=== PATIENT | male | born 1950 | race Caucasian/White ===

== ENCOUNTER 2016-08-27 07:30 | Inpatient (IN) | payer MEDICARE ==
[~2016-08-27] VITALS: Ht 188 cm; Wt 104.5 kg
[2016-09-05] MEDS ORDERED: ALBU6.7H INH (13:45)
[2016-09-05] MEDS ORDERED: MORP30TA81 PO (13:45)
[2016-09-05] MEDS ORDERED: TAMS-11 PO (13:45)
[2016-09-05] MEDS ORDERED: OXYC10TA32 PO (13:45)
[2016-09-05] MEDS ORDERED: METF850T2 PO (13:45)
[2016-09-10] MEDS ORDERED: LACTATED RINGERS 1,000 ML IV SCH (06:09)
[2016-09-10] MEDS ORDERED: BUPIVACAINE/PF 0.5% ONE (06:51)
[2016-09-10] MEDS ORDERED: THROMBIN 5,000 UNIT VIAL TP ONE (06:52)
[2016-09-10] MEDS ORDERED: BACITRACIN 50,000 UNIT ONE (06:52)
[2016-09-10] MEDS ORDERED: EPINEPHRINE 1 MG/ML, 1ML ONE (06:52)
[2016-09-10] MEDS ORDERED: KETAMINE 10 MG/ML, 20ML ONE (07:18)
[2016-09-10] MEDS ORDERED: HYDROmorphone 1 MG/ML, 1ML ONE ×2 (07:19→09:57)
[2016-09-10] MEDS ORDERED: MIDAZOLAM 1 MG/ML, 2ML ONE (07:19)
[2016-09-10] MEDS ORDERED: FENTANYL PF 250 MCG/5ML ONE ×2 (07:19→09:57)
[2016-09-10] MEDS ORDERED: TRANEXAMIC ACID 100 MG/ML, 10ML ONE ×2 (08:16)
[2016-09-10] MEDS ORDERED: HYDROmorphone 1 MG/ML, 1ML IV PRN (09:00)
[2016-09-10] MEDS ORDERED: PROMETHAZINE 25 MG/ML, 1ML IV PRN (09:00)
[2016-09-10] MEDS ORDERED: ALBUTEROL/IPRATROPIUM 2.5MG/0.5MG, 3 ML NPPB PRN (09:00)
[2016-09-10] MEDS ORDERED: MEPERIDINE/PF 25MG/0.5ML IVPush PRN (09:00)
[2016-09-10] MEDS ORDERED: ACETAMINOPHEN 325 MG TABLET PO PRN (09:00)
[2016-09-10] MEDS ORDERED: ONDANSETRON 2MG/ML, 2ML IVPush PRN ×2 (09:00→12:30)
[2016-09-10] MEDS ORDERED: OXYcodone 5 MG/5 ML ORAL.SOL UDC PO PRN (09:00)
[2016-09-10] MEDS ORDERED: LABETALOL 5MG/ML, 20ML IV PRN (09:00)
[2016-09-10] MEDS ORDERED: MIDAZOLAM 1 MG/ML, 2ML IV PRN (09:00)
[2016-09-10] MEDS ORDERED: hydrALAzine 20 MG/ML, 1ML IV PRN (09:00)
[2016-09-10] MEDS ORDERED: VANCOMYCIN 1,000 MG ONE (10:41)
[2016-09-10] MEDS ORDERED: BUPIVACAINE LIPOSOME/PF INFIL ONE (11:30)
[2016-09-10] MEDS ORDERED: MAGNESIUM HYDROXIDE 8%, 30ML UDC PO PRN (12:30)
[2016-09-10] MEDS ORDERED: PROMETHAZINE 25 MG/ML, 1ML IM PRN (12:30)
[2016-09-10] MEDS ORDERED: BISACODYL 10 MG SUPP PR PRN (12:30)
[2016-09-10] MEDS ORDERED: HYDROmorphone 1 MG/ML, 1ML IVPush PRN (12:30)
[2016-09-10] MEDS ORDERED: DIAZEPAM 5 MG TABLET PO PRN (12:30)
[2016-09-10] MEDS ORDERED: ZOLPIDEM 5MG TABLET PO PRN (12:30)
[2016-09-10] MEDS ORDERED: PHARMACY MAY ADJ FOR RENAL FX MC PRN (12:30)
[2016-09-10] MEDS ORDERED: SENNA/DOCUSATE TABLET PO PRN (12:30)
[2016-09-10] MEDS ORDERED: ACETAMINOPHEN 650 MG SUPP PR PRN (12:30)
[2016-09-10] MEDS ORDERED: DIPHENHYDRAMINE 50 MG CAPSULE PO PRN (12:30)
[2016-09-10] MEDS ORDERED: FENTANYL PF 100 MCG/2ML ONE (15:43)
[2016-09-10] MEDS ORDERED: ACETAMINOPHEN 650 MG/20.3 ML UDC ONE (15:43)
[2016-09-10] MEDS ORDERED: OXYcodone 5 MG/5 ML ORAL.SOL UDC ONE (15:44)
[2016-09-10] MEDS: FENTANYL PF 100 MCG/2ML IV PRN ×2 (15:47→15:56)
[2016-09-10] MEDS ORDERED: PROPOFOL 10 MG/ML, 50ML ONE (16:06)
[2016-09-10] MEDS ORDERED: PROPOFOL 10 MG/ML, 20ML ONE (16:06)
[2016-09-10] MEDS ORDERED: CEFAZOLIN 1,000 MG ONE (16:06)
[2016-09-10] MEDS ORDERED: LABETALOL 5MG/ML 40ML VIAL ONE (16:06)
[2016-09-10] MEDS ORDERED: SUCCINYLCHOLINE 20 MG/ML, 10ML ONE (16:06)
[2016-09-10] MEDS ORDERED: DEXAMETHASONE 4 MG/ML, 1ML ONE (16:06)
[2016-09-10] MEDS ORDERED: ONDANSETRON 2MG/ML, 2ML ONE (16:08)
[2016-09-10] MEDS: D5%-0.9% NACL+KCL 20MEQ 1,000 ML IV SCH (17:30)
[2016-09-10 19:59] VITALS: BP 136/72
[2016-09-10] MEDS: OXYcodone/APAP 5/325MG TABLET PO PRN (20:07)
[2016-09-10] MEDS: CEFAZOLIN PMX 1GM/50ML 50 ML IVPB SCH (20:07)
[2016-09-10] MEDS ORDERED: metFORMIN 850 MG TABLET PO SCH (21:00)
[2016-09-10] MEDS ORDERED: SODIUM CHLORIDE FLUSH 10ML SYR IVF SCH (21:00)
[2016-09-10] MEDS: TAMSULOSIN 0.4 MG CAP.ER.24H PO SCH (22:32)
[2016-09-10 23:49] VITALS: BP 95/53
[2016-09-11] MEDS: OXYcodone/APAP 5/325MG TABLET PO PRN ×3 (01:13→09:31)
[2016-09-11] MEDS: D5%-0.9% NACL+KCL 20MEQ 1,000 ML IV SCH (02:00)
[2016-09-11] MEDS: CEFAZOLIN PMX 1GM/50ML 50 ML IVPB SCH (04:18)
[2016-09-11 04:27] VITALS: BP 94/53
[2016-09-11 05:44] LABS: BLOOD UREA NITROGEN 19 mg/dL (7-18)
[2016-09-11] MEDS ORDERED: OXYcodone IR 5MG TABLET PO SCH (06:00)
[2016-09-11 06:55] VITALS: BP 124/68
[2016-09-11] MEDS: TAMSULOSIN 0.4 MG CAP.ER.24H PO SCH (09:38)
== END 2016-09-11 10:47 | disposition home or self-care (01) | DRG 460 ==
LOC: ORIP 09-10 05:24 → EDSTATUS 09-10 07:30 → 4NOR 09-10 16:25 → DCLOUNGE 09-11 10:02
PROVIDERS: ADMIT Orthopaedic Surgery Orthopaedic Surgery of the Spine; ATTEND Orthopaedic Surgery Orthopaedic Surgery of the Spine
PROC: 0SB20ZZ Excision of Lumbar Vertebral Disc, Open Approach (ICD-10-PCS; 2016-09-10)
PROC: 4A11X4G Monitoring of Peripheral Nervous Electrical Activity, Intraoperative, External Approach (ICD-10-PCS; 2016-09-10)
PROC: 0SG00AJ Fusion of Lumbar Vertebral Joint with Interbody Fusion Device, Posterior Approach, Anterior Column, Open Approach (ICD-10-PCS; principal; 2016-09-10 07:30)
DX: M48.06 Spinal stenosis, lumbar region (principal); M51.36 Other intervertebral disc degeneration, lumbar region; M43.16 Spondylolisthesis, lumbar region
CPT/HCPCS: 36415; 72100; 80048; 82040; 82962; 85025; C1713; C1767; C9290; J0171; J0690; J1100; J1170; J2250; J2405; J2704; J3010; J3370; J3490; C1760; C1762; J0330; J3480; J7120

== ENCOUNTER → 2016-09-04 | Outpatient (CLI) | payer MEDICARE ==
[~2016-09-04] MED LIST: ALBU6.7H INH; GADOBUTROL 10 MMOL/10 ML PFS ONE; METF850T2 PO; MORP30TA81 PO; OXYC10TA32 PO; TAMS-11 PO
== END | disposition home or self-care (01) ==
LOC: RAD 13:14
PROVIDERS: ATTEND Nurse Practitioner Primary Care
DX: M19.071 Primary osteoarthritis, right ankle and foot (principal); M25.774 Osteophyte, right foot; Z89.431 Acquired absence of right foot
CPT/HCPCS: 36415; 73720; 82565; A9585

== ENCOUNTER → 2016-09-04 | Outpatient (CLI) | payer MEDICARE ==
[~2016-09-04] MED LIST changes: -GADOBUTROL 10 MMOL/10 ML PFS ONE
[2016-09-04 13:27] LABS: ASPARTATE AMINO TRANSFERASE 20 U/L (15-37); BLOOD UREA NITROGEN 14 mg/dL (7-18)
== END | disposition home or self-care (01) ==
LOC: CFH 10:57
PROVIDERS: ATTEND Nurse Practitioner Primary Care
DX: Z12.11 Encounter for screening for malignant neoplasm of colon (principal); Z13.220 Encounter for screening for lipoid disorders; Z12.5 Encounter for screening for malignant neoplasm of prostate; R53.83 Other fatigue; M54.5 Low back pain; G89.29 Other chronic pain; E78.2 Mixed hyperlipidemia; K21.9 Gastro-esophageal reflux disease without esophagitis; E11.42 Type 2 diabetes mellitus with diabetic polyneuropathy; N40.1 Benign prostatic hyperplasia with lower urinary tract symptoms; J44.9 Chronic obstructive pulmonary disease, unspecified; L30.9 Dermatitis, unspecified; D72.829 Elevated white blood cell count, unspecified; G47.00 Insomnia, unspecified; R68.2 Dry mouth, unspecified; R13.10 Dysphagia, unspecified; M79.671 Pain in right foot; M86.9 Osteomyelitis, unspecified; Z72.0 Tobacco use; Z89.421 Acquired absence of other right toe(s)
CPT/HCPCS: 36415; 80053; 85025

== ENCOUNTER → 2016-09-05 | Outpatient (CLI) | payer MEDICARE | END | disposition home or self-care (01) | LOC: STAR 12:24 | PROVIDERS: ATTEND Orthopaedic Surgery Orthopaedic Surgery of the Spine | DX: Z01.818 Encounter for other preprocedural examination (principal); M48.06 Spinal stenosis, lumbar region | CPT/HCPCS: 71020; 81003; 93005 ==

== ENCOUNTER → 2016-10-21 | Outpatient (CLI) | payer MEDICARE ==
[~2016-10-21] MED LIST changes: -OXYC10TA32 PO; +OXYC10TA47 PO
== END | disposition home or self-care (01) ==
LOC: CFH 08:06
PROVIDERS: ATTEND Nurse Practitioner Primary Care
DX: Z12.2 Encounter for screening for malignant neoplasm of respiratory organs (principal); I25.10 Atherosclerotic heart disease of native coronary artery without angina pectoris; J43.2 Centrilobular emphysema; R91.1 Solitary pulmonary nodule; M47.894 Other spondylosis, thoracic region; R59.0 Localized enlarged lymph nodes; G89.29 Other chronic pain; E11.9 Type 2 diabetes mellitus without complications; E78.2 Mixed hyperlipidemia; K21.9 Gastro-esophageal reflux disease without esophagitis; Z87.891 Personal history of nicotine dependence
CPT/HCPCS: G0297

== ENCOUNTER → 2016-10-29 | Outpatient (CLI) | payer MEDICARE | END | disposition home or self-care (01) | LOC: RAD 11:32 | PROVIDERS: ATTEND Nurse Practitioner Primary Care | DX: M50.23 Other cervical disc displacement, cervicothoracic region (principal); M48.03 Spinal stenosis, cervicothoracic region; M48.02 Spinal stenosis, cervical region; M48.06 Spinal stenosis, lumbar region; M25.78 Osteophyte, vertebrae | CPT/HCPCS: 72141 ==

== ENCOUNTER → 2017-05-15 | Outpatient (CLI) | payer MEDICARE ==
[~2017-05-15] MED LIST changes: +ALLO100T64 PO; +CEPH-368 PO; +GADOBUTROL 10 MMOL/10 ML PFS ONE; +MELO15TA6 PO; +MORP15TA3 PO; +OXYC5CAP2 PO
[2017-05-15 14:36] LABS: ANION GAP 5 mmol/L (5-15); CALCIUM 9.2 mg/dL (8.5-10.1); CHLORIDE 107 mmol/L (98-107); CREATININE 1.04 mg/dL (0.7-1.3)
== END | disposition home or self-care (01) ==
LOC: RAD 14:03
PROVIDERS: ATTEND Nurse Practitioner Primary Care
DX: M19.021 Primary osteoarthritis, right elbow (principal); M86.8X2 Other osteomyelitis, upper arm; R60.0 Localized edema; R53.83 Other fatigue; M54.5 Low back pain; E11.9 Type 2 diabetes mellitus without complications; G89.29 Other chronic pain; G62.9 Polyneuropathy, unspecified; N40.1 Benign prostatic hyperplasia with lower urinary tract symptoms; J44.9 Chronic obstructive pulmonary disease, unspecified; K21.9 Gastro-esophageal reflux disease without esophagitis; R13.10 Dysphagia, unspecified; M79.671 Pain in right foot; R20.2 Paresthesia of skin; M54.2 Cervicalgia; M25.532 Pain in left wrist; M25.521 Pain in right elbow; L30.9 Dermatitis, unspecified; Z89.421 Acquired absence of other right toe(s)
CPT/HCPCS: 36415; 73220; 80048; A9585

== ENCOUNTER 2017-05-16 09:48 | Inpatient (IN) | payer MEDICARE ==
[~2017-05-16] VITALS: Ht 188 cm; Wt 108.0 kg
[~2017-05-16 09:48] MED LIST changes: -ALLO100T64 PO; -CEPH-368 PO; -GADOBUTROL 10 MMOL/10 ML PFS ONE; -MELO15TA6 PO; -MORP15TA3 PO; -OXYC5CAP2 PO
[2017-05-16 10:15] LABS: BASOPHILS # (AUTO) 0.03 x10^3/uL (0-0.1); BASOPHILS % (AUTO) 0 % (0-1); EOSINOPHILS # (AUTO) 0.44 x10^3/uL (0-0.4); EOSINOPHILS % (AUTO) 5 % (1-7); LYMPHOCYTES % (AUTO) 30 % (22-44); MD NO; MEAN CORPUSCULAR HEMOGLOBIN 29.8 pg (27.5-34.5); MEAN CORPUSCULAR HGB CONC 33.9 g/dL (33.2-36.2); MEAN CORPUSCULAR VOLUME 88.1 fL (81-97); MEAN PLATELET VOLUME 9.7 fL (7.4-10.4); MONOCYTES # (AUTO) 0.68 x10^3/uL (0.2-0.8); MONOCYTES % (AUTO) 8 % (2-9); NEUTROPHILS # (AUTO) 4.68 x10^3/uL (1.8-6.8); NEUTROPHILS % (AUTO) 56 % (42-75); PLATELET COUNT 210 x10^3/uL (130-400); RED BLOOD COUNT 5.37 x10^6/uL (4.38-5.82); RED CELL DISTRIBUTION WIDTH 13.1 % (9.4-14.8)
[2017-05-16 10:23] LABS: ALBUMIN 3.4 g/dL (3.4-5.0); ANION GAP 8 mmol/L (5-15); CALCIUM 8.9 mg/dL (8.5-10.1); CHLORIDE 106 mmol/L (98-107); CREATININE 1.13 mg/dL (0.7-1.3)
[2017-05-16 10:40] LABS: HCT (SEDRATE) 47.3 % (39.2-51.8)
[2017-05-16] MEDS ORDERED: CEFAZOLIN PMX 1GM/50ML 50 ML ONE (11:18)
[2017-05-16] MEDS ORDERED: PHARMACOKINETIC CONSULTATION MC ONE ×2 (11:30→15:30)
[2017-05-16] MEDS ORDERED: CEFAZOLIN PMX 1GM/50ML 50 ML IV ONE (11:30)
[2017-05-16] MEDS ORDERED: VANCOMYCIN 2,000 MG in SODIUM CHLORIDE 0.9% 500 ML IV SCH (11:30)
[2017-05-16] MEDS ORDERED: VANCOMYCIN PER PHARMACY MC ONE (11:30)
[2017-05-16] MEDS ORDERED: MORP15TA3 PO (11:39)
[2017-05-16] MEDS ORDERED: OXYC5CAP2 PO (11:39)
[2017-05-16] MEDS ORDERED: MELO15TA6 PO (11:40)
[2017-05-16] MEDS ORDERED: ALLO100T64 PO (11:40)
[2017-05-16] MEDS ORDERED: SODIUM CHLORIDE FLUSH 10ML SYR IVF PRN (12:00)
[2017-05-16] MEDS ORDERED: LABETALOL 5MG/ML, 20ML IVPush PRN (12:00)
[2017-05-16] MEDS ORDERED: DEXTROSE 4 GM TAB.CHEW PO PRN (12:00)
[2017-05-16] MEDS ORDERED: TEMAZEPAM 15 MG CAPSULE PO PRN (12:00)
[2017-05-16] MEDS ORDERED: GLUCAGON 1 MG IM PRN (12:00)
[2017-05-16] MEDS ORDERED: HYDROcodone/APAP 5/325 TABLET PO PRN (12:00)
[2017-05-16] MEDS ORDERED: ONDANSETRON ODT 4 MG PO PRN (12:00)
[2017-05-16] MEDS ORDERED: ONDANSETRON 2MG/ML, 2ML IVPush PRN (12:00)
[2017-05-16] MEDS ORDERED: VANCOMYCIN PER PHARMACY MC PRN (12:00)
[2017-05-16] MEDS ORDERED: DEXTROSE 50%, 50ML SYRINGE IVPush PRN (12:00)
[2017-05-16] MEDS: CEFAZOLIN PMX 1GM/50ML 50 ML IV SCH ×2 (12:37→20:09)
[2017-05-16 12:43] LABS: HEMOGLOBIN A1C 6.8 % (4.2-6.3)
[2017-05-16] MEDS ORDERED: VANCOMYCIN 2,000 MG in SODIUM CHLORIDE 0.9% 500 ML IV ONE (13:00)
[2017-05-16] MEDS: INSULIN LISPRO 100 UNITS/ML, PEN SQ-INSULIN SCH ×3 (13:12→20:10)
[2017-05-16 15:03] VITALS: BP 114/76
[2017-05-16] MEDS ORDERED: PHARMACOKINETIC MONITORING MC PRN (15:30)
[2017-05-16] MEDS: OXYcodone/APAP 5/325MG TABLET PO PRN ×2 (17:02→22:48)
[2017-05-16 17:35] VITALS: BP 114/76
[2017-05-16 18:50] VITALS: BP 124/69
[2017-05-16] MEDS: SODIUM CHLORIDE FLUSH 10ML SYR IVF SCH (20:10)
[2017-05-16] MEDS ORDERED: TAMSULOSIN 0.4 MG CAP.ER.24H PO SCH (21:00)
[2017-05-16] MEDS ORDERED: ALBUTEROL SULFATE 2.5 MG/3 ML NPPB PRN (21:30)
[2017-05-17] MEDS ORDERED: LIDOCAINE-MPF 1%, 5ML INFIL ONE (00:30)
[2017-05-17 01:25] VITALS: BP 134/81
[2017-05-17] MEDS: CEFAZOLIN PMX 1GM/50ML 50 ML IV SCH ×2 (04:35→11:08)
[2017-05-17 05:35] LABS: CHLORIDE 108 mmol/L (98-107)
[2017-05-17 05:39] LABS: BASOPHILS # (AUTO) 0.05 x10^3/uL (0-0.1); BASOPHILS % (AUTO) 1 % (0-1); EOSINOPHILS # (AUTO) 0.53 x10^3/uL (0-0.4); EOSINOPHILS % (AUTO) 6 % (1-7); LYMPHOCYTES # (AUTO) 2.64 x10^3/uL (1-3.4); LYMPHOCYTES % (AUTO) 30 % (22-44); MD NO; MEAN CORPUSCULAR HEMOGLOBIN 30.1 pg (27.5-34.5); MEAN CORPUSCULAR HGB CONC 33.9 g/dL (33.2-36.2); MEAN CORPUSCULAR VOLUME 88.8 fL (81-97); MEAN PLATELET VOLUME 9.9 fL (7.4-10.4); MONOCYTES # (AUTO) 0.68 x10^3/uL (0.2-0.8); MONOCYTES % (AUTO) 8 % (2-9); NEUTROPHILS # (AUTO) 4.95 x10^3/uL (1.8-6.8); NEUTROPHILS % (AUTO) 56 % (42-75); PLATELET COUNT 197 x10^3/uL (130-400); RED BLOOD COUNT 5.14 x10^6/uL (4.38-5.82); RED CELL DISTRIBUTION WIDTH 13.3 % (9.4-14.8)
[2017-05-17 05:42] LABS: ANION GAP 8 mmol/L (5-15); CALCIUM 8.6 mg/dL (8.5-10.1); CREATININE 1.07 mg/dL (0.7-1.3)
[2017-05-17] MEDS: INSULIN LISPRO 100 UNITS/ML, PEN SQ-INSULIN SCH ×2 (07:00→11:00)
[2017-05-17] MEDS ORDERED: CEPH-368 PO (08:36)
[2017-05-17] MEDS: OXYcodone/APAP 5/325MG TABLET PO PRN (08:48)
[2017-05-17] MEDS: SODIUM CHLORIDE FLUSH 10ML SYR IVF SCH (08:48)
[2017-05-17 08:51] VITALS: BP 167/83
[2017-05-17] MEDS ORDERED: TAMSULOSIN 0.4 MG CAP.ER.24H PO SCH (09:00)
[2017-05-17 11:05] VITALS: BP 159/93
[2017-05-17] MEDS ORDERED: VANCOMYCIN 2,000 MG in SODIUM CHLORIDE 0.9% 500 ML IV SCH (13:30)
== END 2017-05-17 11:35 | disposition home or self-care (01) | DRG 603 ==
LOC: ED 11:21 → EDIP 11:57 → 4NOR 14:09
PROVIDERS: ADMIT Internal Medicine; ATTEND Internal Medicine
PROC: 0RJL3ZZ Inspection of Right Elbow Joint, Percutaneous Approach (ICD-10-PCS; principal; 2017-05-16)
DX: L03.113 Cellulitis of right upper limb (principal); J44.9 Chronic obstructive pulmonary disease, unspecified; E11.9 Type 2 diabetes mellitus without complications; G89.4 Chronic pain syndrome; I10 Essential (primary) hypertension; M10.9 Gout, unspecified; N40.0 Benign prostatic hyperplasia without lower urinary tract symptoms; M25.421 Effusion, right elbow; M54.5 Low back pain; M19.021 Primary osteoarthritis, right elbow; Z79.891 Long term (current) use of opiate analgesic; Z87.891 Personal history of nicotine dependence
CPT/HCPCS: 36415; 80048; 82040; 82962; 83036; 83605; 84145; 84550; 85025; 85651; 86140; 87040; J0690; J3370; J7040

== ENCOUNTER 2017-07-28 06:28 | Day surgery (SDC) | payer MEDICARE ==
[~2017-07-28] VITALS: Ht 188 cm; Wt 103.0 kg
[~2017-07-28 06:28] MED LIST changes: +ALLO100T64 PO; +CEPH-368 PO; +MELO15TA6 PO; +MORP15TA3 PO; +OXYC5CAP2 PO
[2017-07-28 07:22] VITALS: BP 130/88
[2017-07-28] MEDS ORDERED: SODIUM CHLORIDE 0.9% 1,000 ML IV SCH (07:24)
[2017-07-28] MEDS ORDERED: FENTANYL PF 100 MCG/2ML ONE (07:39)
[2017-07-28] MEDS ORDERED: FLUMAZENIL 0.1 MG/1 ML, 5ML ONE (07:39)
[2017-07-28] MEDS ORDERED: NALOXONE 1 MG/ML, 2ML ONE (07:39)
[2017-07-28] MEDS ORDERED: MIDAZOLAM 1 MG/ML, 5ML ONE (07:39)
== END 2017-07-28 09:25 ==
LOC: OUT 06:28
PROVIDERS: ATTEND Internal Medicine
DX: R91.8 Other nonspecific abnormal finding of lung field (principal); J98.4 Other disorders of lung; J44.9 Chronic obstructive pulmonary disease, unspecified; Z87.891 Personal history of nicotine dependence; Z86.14 Personal history of Methicillin resistant Staphylococcus aureus infection; Z88.1 Allergy status to other antibiotic agents; Z88.0 Allergy status to penicillin
CPT/HCPCS: 38505; 77012; 82962; 88305; 99156; J2250; J3010; J7030; 99157; J2310

== ENCOUNTER → 2017-08-14 | Outpatient (CLI) | payer MEDICARE ==
[~2017-08-14] MED LIST changes: +[UNRECOGNIZED DRUG - OTHER] PO
== END | disposition home or self-care (01) ==
LOC: PETCFH 10:25
PROVIDERS: ATTEND Internal Medicine Hematology & Oncology
DX: C84.70 Anaplastic large cell lymphoma, ALK-negative, unspecified site (principal); I25.10 Atherosclerotic heart disease of native coronary artery without angina pectoris; R59.0 Localized enlarged lymph nodes; J43.2 Centrilobular emphysema; N28.1 Cyst of kidney, acquired
CPT/HCPCS: 78815; A9552

== ENCOUNTER → 2017-09-08 | Outpatient (CLI) | payer MEDICARE ==
[~2017-09-08] MED LIST changes: +CEFD300C37 PO; +LINE600T7 PO; +PREG75CA PO
== END | disposition home or self-care (01) ==
LOC: WOUND 13:58
PROVIDERS: ATTEND Nurse Practitioner Family
DX: E11.621 Type 2 diabetes mellitus with foot ulcer (principal); L97.511 Non-pressure chronic ulcer of other part of right foot limited to breakdown of skin; M10.9 Gout, unspecified; C91.00 Acute lymphoblastic leukemia not having achieved remission; K21.9 Gastro-esophageal reflux disease without esophagitis; G47.00 Insomnia, unspecified; E78.2 Mixed hyperlipidemia; I10 Essential (primary) hypertension; E11.42 Type 2 diabetes mellitus with diabetic polyneuropathy; J43.9 Emphysema, unspecified; I25.10 Atherosclerotic heart disease of native coronary artery without angina pectoris; Z87.891 Personal history of nicotine dependence; Z89.411 Acquired absence of right great toe; Z79.899 Other long term (current) drug therapy
CPT/HCPCS: 97597; G0463; WOU0463

== ENCOUNTER → 2017-09-15 | Outpatient (CLI) | payer MEDICARE | END | disposition home or self-care (01) | LOC: WOUND 10:00 | PROVIDERS: ATTEND Nurse Practitioner Family | DX: E11.621 Type 2 diabetes mellitus with foot ulcer (principal); L97.511 Non-pressure chronic ulcer of other part of right foot limited to breakdown of skin; M10.9 Gout, unspecified; C91.00 Acute lymphoblastic leukemia not having achieved remission; K21.9 Gastro-esophageal reflux disease without esophagitis; G47.00 Insomnia, unspecified; E78.2 Mixed hyperlipidemia; I10 Essential (primary) hypertension; E11.42 Type 2 diabetes mellitus with diabetic polyneuropathy; J43.9 Emphysema, unspecified; I25.10 Atherosclerotic heart disease of native coronary artery without angina pectoris; Z87.891 Personal history of nicotine dependence; Z89.411 Acquired absence of right great toe; Z79.899 Other long term (current) drug therapy | CPT/HCPCS: 11044 ==

== ENCOUNTER 2017-09-24 03:55 | Observation (INO) | payer MEDICARE ==
[~2017-09-24] VITALS: Ht 188 cm; Wt 100.0 kg
[2017-09-24 05:16] LABS: ALBUMIN 3.2 g/dL (3.4-5.0); ANION GAP 7 mmol/L (5-15); CALCIUM 8.6 mg/dL (8.5-10.1); CHLORIDE 105 mmol/L (98-107)
[2017-09-24 05:22] LABS: ALANINE AMINOTRANSFERASE 47 U/L (12-78); ALKALINE PHOSPHATASE 74 U/L (45-117); BILIRUBIN,TOTAL 0.5 mg/dL (0.2-1.0); CREATININE 1.03 mg/dL (0.7-1.3); TOTAL PROTEIN 6.2 g/dL (6.4-8.2); TROPONIN I < 0.015 ng/mL (0.000-0.045)
[2017-09-24 05:45] LABS: MEAN CORPUSCULAR HEMOGLOBIN 29.9 pg (27.5-34.5); MEAN CORPUSCULAR HGB CONC 34.1 g/dL (33.2-36.2); MEAN CORPUSCULAR VOLUME 87.7 fL (81-97); RED BLOOD COUNT 4.04 x10^6/uL (4.38-5.82); RED CELL DISTRIBUTION WIDTH 14.7 % (9.4-14.8)
[2017-09-24 05:46] LABS: MD YES; MEAN PLATELET VOLUME 9.4 fL (7.4-10.4); PLATELET COUNT 83 x10^3/uL (130-400)
[2017-09-24 05:50] LABS: BASOS#(MANUAL) 0.04 x10^3/uL (0-0.1); BASOS% (MANUAL) 1 % (0-1); EOS#(MANUAL) 0.14 x10^3/uL (0.0-0.4); EOS% (MANUAL) 4 % (1-7); NRBC % (MANUAL) 1 % (0-1); REACTIVE LYMPHS # (MANUAL) 0.07 x10^3/uL (0-0); REACTIVE LYMPHS % (MANUAL) 2 % (0-0)
[2017-09-24 05:51] LABS: BAND#(MANUAL) 0.25 x10^3/uL; BANDS%(MANUAL) 7 % (0-7); LYMPHS% (MANUAL) 37 % (22-44); MONOS#(MANUAL) 0.28 x10^3/uL (0.3-2.7); MONOS% (MANUAL) 8 % (2-9); SEG#(MANUAL) 1.44 x10^3/uL (1.8-6.8); SEGS% (MANUAL) 41 % (42-75)
[2017-09-24 05:53] LABS: <PLATELET ESTIMATE> DECREASED; <PLT MORPHOLOGY> NORMAL PLT MORPH; <RBC MORPHOLOGY> NORMAL
[2017-09-24 05:54] LABS: TOXIC GRAN 1+
[2017-09-24] MEDS ORDERED: ASPIRIN 81 MG TABLET CHEW PO ONE (06:00)
[2017-09-24] MEDS ORDERED: ASPIRIN 81 MG TABLET CHEW ONE (06:09)
[2017-09-24] MEDS ORDERED: OMNIPAQUE 350 MG/ML, 100ML BOTTLE ONE (06:28)
[2017-09-24] MEDS ORDERED: ONDANSETRON ODT 4 MG PO PRN (08:30)
[2017-09-24] MEDS ORDERED: ENALAPRILAT 1.25 MG/ML, 2ML IVPush PRN (08:30)
[2017-09-24] MEDS ORDERED: BISACODYL 10 MG SUPP PR PRN (08:30)
[2017-09-24] MEDS ORDERED: ONDANSETRON 2MG/ML, 2ML IVPush PRN (08:30)
[2017-09-24] MEDS ORDERED: ACETAMINOPHEN 325 MG TABLET PO PRN (08:30)
[2017-09-24] MEDS ORDERED: DOCUSATE 100 MG CAPSULE PO PRN (08:30)
[2017-09-24] MEDS ORDERED: ALBUTEROL SULFATE INH SCH ×2 (08:30→08:35)
[2017-09-24 08:55] VITALS: BP 113/67
[2017-09-24] MEDS ORDERED: ALLOPURINOL 300 MG TABLET PO SCH ×2 (09:00→17:00)
[2017-09-24] MEDS ORDERED: SENNA/DOCUSATE TABLET PO SCH (09:00)
[2017-09-24] MEDS ORDERED: TAMSULOSIN 0.4 MG CAP.ER.24H PO SCH ×2 (09:00→17:00)
[2017-09-24] MEDS ORDERED: CEPHALEXIN 500 MG CAPSULE PO SCH (10:30)
[2017-09-24 11:39] LABS: TROPONIN I < 0.015 ng/mL (0.000-0.045)
[2017-09-24] MEDS ORDERED: REGADENOSON 0.4 MG/5 ML SYRINGE ONE (11:53)
[2017-09-24] MEDS ORDERED: CEPH-376 PO (16:02)
== END 2017-09-24 18:04 | disposition home or self-care (01) ==
LOC: ED 05:58 → EDIP 07:09 → INTOOBSV 07:09 → 5SO 08:27
PROVIDERS: ADMIT Internal Medicine; ATTEND Internal Medicine
DX: R07.9 Chest pain, unspecified (principal); C91.00 Acute lymphoblastic leukemia not having achieved remission; E11.9 Type 2 diabetes mellitus without complications; I10 Essential (primary) hypertension; J43.9 Emphysema, unspecified; D69.6 Thrombocytopenia, unspecified; I25.10 Atherosclerotic heart disease of native coronary artery without angina pectoris; N40.0 Benign prostatic hyperplasia without lower urinary tract symptoms; Z87.891 Personal history of nicotine dependence; Z85.72 Personal history of non-Hodgkin lymphomas
CPT/HCPCS: 36415; 71045; 71275; 78452; 80053; 84484; 85025; 93005; 93017; 99285; A9502; C9898; G0378; J2785; Q9967

== ENCOUNTER → 2017-10-29 | Outpatient (CLI) | payer MEDICARE ==
[~2017-10-29] MED LIST changes: +CEPH-376 PO; +LINE600T33 PO; -LINE600T7 PO; +METF850T10 PO; -METF850T2 PO
== END | disposition home or self-care (01) ==
LOC: PETCFH 08:56
PROVIDERS: ATTEND Internal Medicine Hematology & Oncology
DX: J44.9 Chronic obstructive pulmonary disease, unspecified (principal); R91.1 Solitary pulmonary nodule; L72.3 Sebaceous cyst
CPT/HCPCS: 78815; A9552

== ENCOUNTER → 2017-12-25 | Outpatient (CLI) | payer MEDICARE | END | disposition home or self-care (01) | LOC: PETCFH 08:37 | PROVIDERS: ATTEND Internal Medicine Hematology & Oncology | DX: R59.0 Localized enlarged lymph nodes (principal); C84.70 Anaplastic large cell lymphoma, ALK-negative, unspecified site; R91.1 Solitary pulmonary nodule; L72.3 Sebaceous cyst | CPT/HCPCS: 78815; A9552 ==

== ENCOUNTER 2018-01-31 09:28 | Emergency (ER) | payer MEDICARE ==
[~2018-01-31] VITALS: Ht 188 cm; Wt 96.4 kg
[2018-01-31] MEDS ORDERED: METF500T17 PO (10:10)
[2018-01-31] MEDS ORDERED: SODIUM CHLORIDE FLUSH 10ML SYR IVF ONE (10:30)
[2018-01-31 10:50] LABS: BASOPHILS # (AUTO) 0.04 x10^3/uL (0-0.1); BASOPHILS % (AUTO) 1 % (0-1); EOSINOPHILS # (AUTO) 0.39 x10^3/uL (0-0.4); EOSINOPHILS % (AUTO) 6 % (1-7); LYMPHOCYTES # (AUTO) 1.11 x10^3/uL (1-3.4); LYMPHOCYTES % (AUTO) 16 % (22-44); MD NO; MEAN CORPUSCULAR HEMOGLOBIN 31.8 pg (27.5-34.5); MEAN CORPUSCULAR HGB CONC 34.3 g/dL (33.2-36.2); MEAN CORPUSCULAR VOLUME 92.6 fL (81-97); MEAN PLATELET VOLUME 10.1 fL (7.4-10.4); MONOCYTES % (AUTO) 8 % (2-9); NEUTROPHILS # (AUTO) 4.98 x10^3/uL (1.8-6.8); NEUTROPHILS % (AUTO) 70 % (42-75); PLATELET COUNT 145 x10^3/uL (130-400); RED CELL DISTRIBUTION WIDTH 13.9 % (9.4-14.8)
[2018-01-31] MEDS ORDERED: KETOROLAC 30 MG/1 ML ONE (10:52)
[2018-01-31 10:54] LABS: ALANINE AMINOTRANSFERASE 23 U/L (12-78); ALBUMIN 3.8 g/dL (3.4-5.0); ANION GAP 8 mmol/L (5-15); CALCIUM 9.1 mg/dL (8.5-10.1); CHLORIDE 108 mmol/L (98-107); CREATININE 0.95 mg/dL (0.7-1.3)
[2018-01-31 10:58] LABS: ALKALINE PHOSPHATASE 77 U/L (45-117); BILIRUBIN,TOTAL 0.5 mg/dL (0.2-1.0); TOTAL PROTEIN 7.2 g/dL (6.4-8.2); TROPONIN I 0.022 ng/mL (0.000-0.045)
[2018-01-31] MEDS ORDERED: KETOROLAC 30 MG/1 ML IV ONE (11:00)
[2018-01-31] MEDS ORDERED: OMNIPAQUE 350 MG/ML, 100ML BOTTLE ONE (11:30)
[2018-01-31 12:20] VITALS: BP 105/69
== END 2018-01-31 12:45 | disposition home or self-care (01) ==
LOC: ED 10:34
DX: R07.89 Other chest pain (principal); I10 Essential (primary) hypertension; E11.9 Type 2 diabetes mellitus without complications; J44.9 Chronic obstructive pulmonary disease, unspecified; Z86.14 Personal history of Methicillin resistant Staphylococcus aureus infection
CPT/HCPCS: 36415; 71275; 80053; 84484; 85025; 93005; 96374; 99284; J1885; Q9967

== ENCOUNTER 2018-03-03 12:08 | Outpatient (CLI) | payer MEDICARE ==
[~2018-03-03 12:08] MED LIST changes: +METF500T17 PO
[2018-03-03] MEDS ORDERED: LIDOCAINE-MPF 1%, 5ML ONE (12:57)
[2018-03-03 13:16] LABS: CREATININE 0.85 mg/dL (0.7-1.3)
[2018-03-03] MEDS ORDERED: OMNIPAQUE 350 MG/ML, 100ML BOTTLE ONE (13:57)
== END 2018-03-03 23:59 | disposition home or self-care (01) ==
LOC: RAD 12:08
PROVIDERS: ATTEND Internal Medicine Hematology & Oncology
DX: C84.70 Anaplastic large cell lymphoma, ALK-negative, unspecified site (principal)
CPT/HCPCS: 10005; 36415; 70491; 82565; 88104; 88305; Q9967; 76942

== ENCOUNTER → 2018-04-06 | Outpatient (CLI) | payer MEDICARE | END | disposition home or self-care (01) | LOC: RAD 14:07 | PROVIDERS: ATTEND Internal Medicine Hematology & Oncology | DX: C79.51 Secondary malignant neoplasm of bone (principal); Z79.899 Other long term (current) drug therapy; Z85.89 Personal history of malignant neoplasm of other organs and systems | CPT/HCPCS: 70110 ==

== ENCOUNTER 2018-04-25 17:59 | Emergency (ER) | payer MEDICARE ==
[~2018-04-25] VITALS: Ht 182.9 cm; Wt 89.0 kg
[2018-04-25] MEDS ORDERED: ALBUTEROL/IPRATROPIUM 2.5MG/0.5MG, 3 ML ONE (18:42)
[2018-04-25] MEDS ORDERED: SODIUM CHLORIDE 0.9% 1,000ML IVBOLUS ONE (19:00)
[2018-04-25] MEDS ORDERED: ALBUTEROL/IPRATROPIUM 2.5MG/0.5MG, 3 ML NPPB ONE (19:00)
[2018-04-25] MEDS ORDERED: SODIUM CHLORIDE FLUSH 10ML SYR IVF ONE (19:00)
--- NOTE | 2018-04-25 19:19 | NUR ---
rt at bedside
--- NOTE | 2018-04-25 19:39 | NUR ---
TASK RN: PIV STARTED, LABS DRAWN. IVF INFUSING.
[2018-04-25 19:47] LABS: BASOPHILS # (AUTO) 0.02 x10^3/uL (0-0.1); BASOPHILS % (AUTO) 0 % (0-1); EOSINOPHILS # (AUTO) 0.17 x10^3/uL (0-0.4); EOSINOPHILS % (AUTO) 2 % (1-7); LYMPHOCYTES # (AUTO) 0.76 x10^3/uL (1-3.4); LYMPHOCYTES % (AUTO) 7 % (22-44); MD NO; MEAN CORPUSCULAR HEMOGLOBIN 28.6 pg (27.5-34.5); MEAN CORPUSCULAR HGB CONC 32.7 g/dL (33.2-36.2); MEAN CORPUSCULAR VOLUME 87.6 fL (81-97); MEAN PLATELET VOLUME 9.9 fL (7.4-10.4); MONOCYTES # (AUTO) 0.73 x10^3/uL (0.2-0.8); MONOCYTES % (AUTO) 7 % (2-9); NEUTROPHILS # (AUTO) 8.68 x10^3/uL (1.8-6.8); NEUTROPHILS % (AUTO) 84 % (42-75); PLATELET COUNT 177 x10^3/uL (130-400); RED BLOOD COUNT 5.62 x10^6/uL (4.38-5.82); RED CELL DISTRIBUTION WIDTH 14.3 % (9.4-14.8)
[2018-04-25] MEDS ORDERED: MORP15TA PO (19:51)
[2018-04-25] MEDS ORDERED: METF500T17 PO (19:51)
[2018-04-25] MEDS ORDERED: OXYC20TA2 PO (19:54)
[2018-04-25] MEDS ORDERED: TRILIGY PEG (19:54)
[2018-04-25 20:00] LABS: ALANINE AMINOTRANSFERASE 19 U/L (12-78); ALBUMIN 3.8 g/dL (3.4-5.0); ANION GAP 9 mmol/L (5-15); CHLORIDE 105 mmol/L (98-107)
[2018-04-25 20:04] LABS: ALKALINE PHOSPHATASE 157 U/L (45-117); CREATININE 0.91 mg/dL (0.7-1.3); TOTAL PROTEIN 7.6 g/dL (6.4-8.2)
--- NOTE | 2018-04-25 20:14 | NUR ---
all results back at this time. chart up for recheck.
--- NOTE | 2018-04-25 20:27 | NUR ---
md to bedside to update on poc.
--- NOTE | 2018-04-25 20:38 | NUR ---
NEW ORDERS RECEIVED FOR CTA CHEST AT THIS TIME.
[2018-04-25] MEDS ORDERED: OMNIPAQUE 350 MG/ML, 100ML BOTTLE ONE (20:40)
--- NOTE | 2018-04-25 20:48 | NUR ---
pt to ct
[2018-04-25 21:20] VITALS: BP 148/89
--- NOTE | 2018-04-25 21:21 | NUR ---
pt resting in room with lights dimmed with family at bedside. no needs at this time. vss. awaiting cta resutls.
--- NOTE | 2018-04-25 21:40 | NUR ---
all results back at this time. chart up for recheck.
== END 2018-04-25 22:05 | disposition home or self-care (01) ==
LOC: ED 19:47
DX: M84.411A Pathological fracture, right shoulder, initial encounter for fracture (principal); C85.90 Non-Hodgkin lymphoma, unspecified, unspecified site; Z51.11 Encounter for antineoplastic chemotherapy; I10 Essential (primary) hypertension; J44.9 Chronic obstructive pulmonary disease, unspecified; E11.9 Type 2 diabetes mellitus without complications; Z86.14 Personal history of Methicillin resistant Staphylococcus aureus infection
CPT/HCPCS: 36415; 71046; 71275; 73030; 80053; 85025; 85379; 93005; 94640; 99284; J7030; J7620; Q9967

== ENCOUNTER 2018-05-18 13:49 | Observation (INO) | payer MEDICARE ==
[~2018-05-18] VITALS: Ht 182.9 cm; Wt 82.0 kg
[~2018-05-18 13:49] MED LIST changes: +MORP15TA PO; +OXYC20TA2 PO; +TRILIGY PEG
--- NOTE | 2018-05-18 14:52 | NUR ---
FIRST CONTACT WITH PT. Pt resting on gurney. ARRIAGA. Pt states, "I am here for several things, no appetite, havn't eat in three days. Three days ago was my last bowel movement, it was hard. I take narcotics. I have pain in my right foot for a couple of days. I am a type two diabetic. I have widespread pain, especially in my lung, for weeks (back left upper back) I have stage four cancer, Dr. Covington is my oncologist." Pt denies cp, sob, nausea, vomiting, trauma, lightheadedness, or dizziness.
[2018-05-18 15:02] LABS: BASOPHILS # (AUTO) 0.01 x10^3/uL (0-0.1); BASOPHILS % (AUTO) 0 % (0-1); EOSINOPHILS # (AUTO) 0.31 x10^3/uL (0-0.4); EOSINOPHILS % (AUTO) 3 % (1-7); LYMPHOCYTES % (AUTO) 10 % (22-44); MD NO; MEAN CORPUSCULAR HEMOGLOBIN 27.9 pg (27.5-34.5); MEAN CORPUSCULAR HGB CONC 33.4 g/dL (33.2-36.2); MEAN CORPUSCULAR VOLUME 83.4 fL (81-97); MEAN PLATELET VOLUME 10.1 fL (7.4-10.4); MONOCYTES % (AUTO) 5 % (2-9); NEUTROPHILS # (AUTO) 8.35 x10^3/uL (1.8-6.8); NEUTROPHILS % (AUTO) 82 % (42-75); PLATELET COUNT 249 x10^3/uL (130-400); RED BLOOD COUNT 6.78 x10^6/uL (4.38-5.82); RED CELL DISTRIBUTION WIDTH 15.9 % (9.4-14.8)
[2018-05-18 15:05] LABS: ALANINE AMINOTRANSFERASE 23 U/L (12-78); ALBUMIN 4.2 g/dL (3.4-5.0); ANION GAP 10 mmol/L (5-15); CALCIUM 11.1 mg/dL (8.5-10.1); CHLORIDE 102 mmol/L (98-107)
[2018-05-18 15:08] LABS: ALKALINE PHOSPHATASE 219 U/L (45-117); BILIRUBIN,TOTAL 1.2 mg/dL (0.2-1.0)
[2018-05-18] MEDS ORDERED: ONDANSETRON 2MG/ML, 2ML ONE (15:41)
[2018-05-18] MEDS ORDERED: HYDROmorphone 2 MG/ML, 1ML ONE (15:42)
[2018-05-18] MEDS ORDERED: HYDROmorphone 2 MG/ML, 1ML IVPush PRN (16:00)
[2018-05-18] MEDS ORDERED: ONDANSETRON 2MG/ML, 2ML IVPush ONE (16:00)
[2018-05-18] MEDS ORDERED: ACETAMINOPHEN 325 MG TABLET PO PRN (16:30)
[2018-05-18] MEDS ORDERED: GUAIFENESIN/DM 200-20MG, 10ML UDC PO PRN (16:30)
[2018-05-18] MEDS ORDERED: ONDANSETRON ODT 4 MG PO PRN (16:30)
[2018-05-18] MEDS ORDERED: hydrALAzine 20 MG/ML, 1ML IVPush PRN (16:30)
[2018-05-18] MEDS ORDERED: POLYETHYLENE GLYCOL 17 GM PACKET PO PRN (16:30)
[2018-05-18] MEDS ORDERED: GABAPENTIN 300 MG CAPSULE PO PRN (16:30)
[2018-05-18] MEDS ORDERED: BISACODYL 10 MG SUPP PR PRN (16:30)
[2018-05-18] MEDS ORDERED: SODIUM CHLORIDE 0.9% 1,000 ML IV SCH (16:30)
[2018-05-18] MEDS ORDERED: DOCUSATE 100 MG CAPSULE PO PRN (16:30)
[2018-05-18] MEDS ORDERED: LIDODERM 5% PATCH TD PRN (16:30)
--- NOTE | 2018-05-18 16:35 | NUR ---
Pt resting on rickie. Pt states, "My pain is better now, about a 6/10 in my feet."
--- NOTE | 2018-05-18 16:55 | NUR ---
Provided report to ELIJAH Holliday. All questions answered. Pt ready to transfer to floor from ED.
--- NOTE | 2018-05-18 17:05 | NUR ---
Pt transported on gurney to floor from ED and left with all personal belongings. NADN. All safety measures in place.
[2018-05-18 17:21] VITALS: BP 129/91
[2018-05-18] MEDS: SODIUM CHLORIDE 0.9% 1,000 ML IV SCH (17:35)
[2018-05-18 20:21] VITALS: BP 115/77
[2018-05-18] MEDS: INSULIN LISPRO 100 UNITS/ML, PEN SQ-INSULIN SCH (21:23)
[2018-05-18] MEDS: OXYcodone IR 5MG TABLET PO SCH (21:25)
[2018-05-18] MEDS: GABAPENTIN 300 MG CAPSULE PO SCH (21:26)
[2018-05-19 00:53] VITALS: BP 106/68
[2018-05-19 01:18] LABS: MICROSCOPIC NOT IND
[2018-05-19 01:19] LABS: CULTURE INDICATED? NO
[2018-05-19] MEDS: SODIUM CHLORIDE 0.9% 1,000 ML IV SCH (03:46)
[2018-05-19 06:02] LABS: BASOPHILS # (AUTO) 0.04 x10^3/uL (0-0.1); BASOPHILS % (AUTO) 1 % (0-1); EOSINOPHILS # (AUTO) 0.67 x10^3/uL (0-0.4); EOSINOPHILS % (AUTO) 9 % (1-7); LYMPHOCYTES # (AUTO) 0.86 x10^3/uL (1-3.4); LYMPHOCYTES % (AUTO) 11 % (22-44); MD NO; MEAN CORPUSCULAR HGB CONC 33.6 g/dL (33.2-36.2); MEAN CORPUSCULAR VOLUME 83.2 fL (81-97); MEAN PLATELET VOLUME 9.4 fL (7.4-10.4); MONOCYTES # (AUTO) 0.88 x10^3/uL (0.2-0.8); MONOCYTES % (AUTO) 12 % (2-9); NEUTROPHILS # (AUTO) 5.23 x10^3/uL (1.8-6.8); NEUTROPHILS % (AUTO) 68 % (42-75); PLATELET COUNT 182 x10^3/uL (130-400); RED CELL DISTRIBUTION WIDTH 15.6 % (9.4-14.8)
[2018-05-19 06:09] LABS: CHLORIDE 107 mmol/L (98-107)
[2018-05-19 06:16] LABS: ANION GAP 7 mmol/L (5-15); CREATININE 0.87 mg/dL (0.7-1.3)
[2018-05-19] MEDS: OXYcodone IR 5MG TABLET PO SCH ×2 (06:31→11:07)
[2018-05-19] MEDS: INSULIN LISPRO 100 UNITS/ML, PEN SQ-INSULIN SCH ×2 (07:00→11:00)
[2018-05-19] MEDS ORDERED: SENNA/DOCUSATE TABLET PO SCH (09:00)
[2018-05-19] MEDS ORDERED: TAMSULOSIN 0.4 MG CAP.ER.24H PO SCH (09:00)
[2018-05-19] MEDS ORDERED: ALLOPURINOL 300 MG TABLET PO SCH (09:00)
[2018-05-19 09:35] VITALS: BP 113/76
[2018-05-19] MEDS: GABAPENTIN 300 MG CAPSULE PO SCH (09:45)
[2018-05-19] MEDS ORDERED: GABA300C10 PO (14:09)
== END 2018-05-19 15:03 | disposition home or self-care (01) ==
LOC: ED 16:22 → INTOOBSV 16:23 → EDIP 16:23 → ED 17:01 → 4NOR 17:14 → INTOOBSV 17:14 → UNDOADMOB 17:14 → 4NOR 17:44
PROVIDERS: ADMIT Internal Medicine; ATTEND Internal Medicine
DX: R07.89 Other chest pain (principal); E11.9 Type 2 diabetes mellitus without complications; N40.0 Benign prostatic hyperplasia without lower urinary tract symptoms; M10.9 Gout, unspecified; K59.00 Constipation, unspecified; J44.9 Chronic obstructive pulmonary disease, unspecified; I10 Essential (primary) hypertension; Z85.72 Personal history of non-Hodgkin lymphomas; Z87.891 Personal history of nicotine dependence; Z89.411 Acquired absence of right great toe; Z89.429 Acquired absence of other toe(s), unspecified side
CPT/HCPCS: 36415; 71045; 73630; 80048; 80053; 81003; 82962; 85025; 96374; 96375; 97161; 97165; 99284; G0378; J1170; J2405; J7030

== ENCOUNTER 2018-05-26 14:07 | Inpatient (IN) | payer MEDICARE ==
[~2018-05-26] VITALS: Ht 182.9 cm; Wt 79.0 kg
[~2018-05-26 14:07] MED LIST changes: +GABA300C10 PO
--- NOTE | 2018-05-26 14:47 | NUR ---
HUMANITIES TEACHER: PT WHEELED BACK FROM LOBBY TO ROOM AT THIS TIME.
[2018-05-26 14:58] LABS: ALBUMIN 3.2 g/dL (3.4-5.0); ANION GAP 11 mmol/L (5-15); CALCIUM 9.4 mg/dL (8.5-10.1); CHLORIDE 104 mmol/L (98-107)
[2018-05-26 15:01] LABS: ALANINE AMINOTRANSFERASE 18 U/L (12-78); ALKALINE PHOSPHATASE 163 U/L (45-117); BILIRUBIN,TOTAL 1.4 mg/dL (0.2-1.0); CREATININE 0.85 mg/dL (0.7-1.3)
[2018-05-26 15:08] LABS: MEAN CORPUSCULAR HEMOGLOBIN 27.9 pg (27.5-34.5); MEAN CORPUSCULAR HGB CONC 34.1 g/dL (33.2-36.2); MEAN CORPUSCULAR VOLUME 82.1 fL (81-97); RED BLOOD COUNT 5.54 x10^6/uL (4.38-5.82); RED CELL DISTRIBUTION WIDTH 16.2 % (9.4-14.8)
[2018-05-26 15:15] LABS: MD YES; MEAN PLATELET VOLUME 9.8 fL (7.4-10.4); PLATELET COUNT 328 x10^3/uL (130-400)
[2018-05-26 15:22] LABS: ANISOCYTOSIS 1+; BAND#(MANUAL) 0.14 x10^3/uL; BANDS%(MANUAL) 2 % (0-7); EOS#(MANUAL) 0.27 x10^3/uL (0.0-0.4); EOS% (MANUAL) 4 % (1-7); LYMPH#(MANUAL) 0.61 x10^3/uL (1-3.4); LYMPHS% (MANUAL) 9 % (22-44); MONOS#(MANUAL) 1.29 x10^3/uL (0.3-2.7); MONOS% (MANUAL) 19 % (2-9); SEG#(MANUAL) 4.49 x10^3/uL (1.8-6.8); SEGS% (MANUAL) 66 % (42-75)
[2018-05-26 15:23] LABS: <PLATELET ESTIMATE> ADEQUATE; ACANTHOCYTES 2+; LARGE PLATELETS 1+; OVALOCYTES 1+
[2018-05-26] MEDS ORDERED: AZITHROMYCIN 500 MG in SODIUM CHLORIDE 0.9% 250 ML IVPB ONE (16:00)
[2018-05-26] MEDS ORDERED: CEFTRIAXONE PMX 1GM/50ML 50 ML IVPB ONE (16:00)
[2018-05-26] MEDS ORDERED: CEFTRIAXONE PMX 1GM/50ML 50 ML ONE (16:29)
[2018-05-26] MEDS ORDERED: GABA300C10 PO (16:46)
[2018-05-26] MEDS ORDERED: ONDANSETRON 2MG/ML, 2ML ONE (16:47)
[2018-05-26] MEDS ORDERED: MORPHINE SULFATE 4 MG/ML, 1ML ONE (16:48)
[2018-05-26 16:55] LABS: ECHINOCYTES 2+
[2018-05-26] MEDS ORDERED: ONDANSETRON 2MG/ML, 2ML IVPush ONE (17:00)
[2018-05-26] MEDS ORDERED: MORPHINE SULFATE 4 MG/ML, 1ML IVPush PRN (17:00)
[2018-05-26] MEDS ORDERED: LIDODERM 5% PATCH TD PRN (17:30)
[2018-05-26] MEDS ORDERED: POLYETHYLENE GLYCOL 17 GM PACKET PO PRN (17:30)
[2018-05-26] MEDS ORDERED: ONDANSETRON ODT 4 MG PO PRN (17:30)
[2018-05-26] MEDS ORDERED: GUAIFENESIN/DM 200-20MG, 10ML UDC PO PRN (17:30)
[2018-05-26] MEDS ORDERED: GABAPENTIN 300 MG CAPSULE PO PRN (17:30)
[2018-05-26] MEDS ORDERED: DOCUSATE 100 MG CAPSULE PO PRN (17:30)
[2018-05-26] MEDS ORDERED: BISACODYL 10 MG SUPP PR PRN (17:30)
[2018-05-26] MEDS ORDERED: ACETAMINOPHEN 325 MG TABLET PO PRN (17:30)
[2018-05-26] MEDS ORDERED: SODIUM CHLORIDE FLUSH 10ML SYR IVF PRN (17:30)
[2018-05-26] MEDS ORDERED: hydrALAzine 20 MG/ML, 1ML IVPush PRN (17:30)
[2018-05-26 18:02] LABS: FREE T4 (FREE THYROXINE) 1.53 ng/dL (0.76-1.46); THYROID STIMULATING HORMONE 1.37 mIU/L (0.358-3.740)
[2018-05-26] MEDS ORDERED: OMNIPAQUE 350 MG/ML, 100ML BOTTLE ONE (18:08)
[2018-05-26] MEDS ORDERED: CEFTRIAXONE PMX 1GM/50ML 50 ML IV SCH (19:00)
[2018-05-26] MEDS ORDERED: POTASSIUM CHLORIDE 20 MEQ TAB.ER.PRT PO ONE (19:00)
[2018-05-26 19:08] VITALS: BP 149/87
[2018-05-26] MEDS: DRONABINOL 5 MG CAPSULE PO SCH (21:00)
[2018-05-26] MEDS: morphine SULFATE 15 MG TAB.IR PO SCH (21:00)
[2018-05-26] MEDS: OXYcodone IR 5MG TABLET PO SCH (21:26)
[2018-05-26] MEDS ORDERED: ALBUTEROL SULFATE 2.5 MG/3 ML NPPB PRN (21:30)
[2018-05-26 23:22] VITALS: BP 131/78
[2018-05-27 01:05] VITALS: BP 106/71
[2018-05-27 04:53] LABS: ANION GAP 10 mmol/L (5-15); BASOPHILS # (AUTO) 0.03 x10^3/uL (0-0.1); BASOPHILS % (AUTO) 1 % (0-1); CALCIUM 8.9 mg/dL (8.5-10.1); CHLORIDE 106 mmol/L (98-107); CREATININE 0.74 mg/dL (0.7-1.3); EOSINOPHILS # (AUTO) 0.32 x10^3/uL (0-0.4); EOSINOPHILS % (AUTO) 7 % (1-7); LYMPHOCYTES # (AUTO) 0.51 x10^3/uL (1-3.4); LYMPHOCYTES % (AUTO) 12 % (22-44); MD NO; MEAN CORPUSCULAR HEMOGLOBIN 27.6 pg (27.5-34.5); MEAN CORPUSCULAR HGB CONC 33.5 g/dL (33.2-36.2); MEAN CORPUSCULAR VOLUME 82.4 fL (81-97); MEAN PLATELET VOLUME 9.1 fL (7.4-10.4); MONOCYTES # (AUTO) 0.83 x10^3/uL (0.2-0.8); MONOCYTES % (AUTO) 19 % (2-9); NEUTROPHILS # (AUTO) 2.72 x10^3/uL (1.8-6.8); NEUTROPHILS % (AUTO) 62 % (42-75); PLATELET COUNT 245 x10^3/uL (130-400); RED BLOOD COUNT 4.87 x10^6/uL (4.38-5.82); RED CELL DISTRIBUTION WIDTH 16.3 % (9.4-14.8)
[2018-05-27 06:40] VITALS: BP 137/71
[2018-05-27] MEDS: TAMSULOSIN 0.4 MG CAP.ER.24H PO SCH (07:52)
[2018-05-27] MEDS: morphine SULFATE 15 MG TAB.IR PO SCH ×3 (07:53→21:00)
[2018-05-27] MEDS: OXYcodone IR 5MG TABLET PO SCH ×4 (07:53→20:38)
[2018-05-27] MEDS: ALLOPURINOL 100 MG TABLET PO SCH (07:53)
[2018-05-27] MEDS: DRONABINOL 5 MG CAPSULE PO SCH ×2 (07:53→20:38)
[2018-05-27] MEDS: SENNA/DOCUSATE TABLET PO SCH (07:53)
[2018-05-27 08:32] LABS: CULTURE INDICATED? YES; MICROSCOPIC INDICATED
[2018-05-27 12:25] VITALS: BP 100/65
[2018-05-27] MEDS: CEFTRIAXONE PMX 1GM/50ML 50 ML IV SCH (16:26)
[2018-05-27] MEDS: AZITHROMYCIN 500 MG in SODIUM CHLORIDE 0.9% 250 ML IV SCH (17:11)
[2018-05-27] MEDS ORDERED: POTASSIUM CHLORIDE 20 MEQ TAB.ER.PRT PO ONE (19:30)
[2018-05-27 19:56] VITALS: BP 122/75
[2018-05-28 01:01] VITALS: BP 111/68
[2018-05-28] MEDS: OXYcodone IR 5MG TABLET PO SCH ×4 (05:20→20:37)
[2018-05-28 05:30] LABS: ANION GAP 7 mmol/L (5-15); CHLORIDE 107 mmol/L (98-107)
[2018-05-28 05:33] LABS: BASOPHILS # (AUTO) 0.03 x10^3/uL (0-0.1); BASOPHILS % (AUTO) 1 % (0-1); EOSINOPHILS # (AUTO) 0.19 x10^3/uL (0-0.4); EOSINOPHILS % (AUTO) 6 % (1-7); LYMPHOCYTES # (AUTO) 0.39 x10^3/uL (1-3.4); LYMPHOCYTES % (AUTO) 12 % (22-44); MD NO; MEAN CORPUSCULAR HEMOGLOBIN 27.6 pg (27.5-34.5); MEAN CORPUSCULAR HGB CONC 33.9 g/dL (33.2-36.2); MEAN CORPUSCULAR VOLUME 81.6 fL (81-97); MEAN PLATELET VOLUME 8.8 fL (7.4-10.4); MONOCYTES # (AUTO) 0.55 x10^3/uL (0.2-0.8); MONOCYTES % (AUTO) 17 % (2-9); NEUTROPHILS # (AUTO) 2.09 x10^3/uL (1.8-6.8); NEUTROPHILS % (AUTO) 64 % (42-75); PLATELET COUNT 214 x10^3/uL (130-400); RED BLOOD COUNT 4.78 x10^6/uL (4.38-5.82); RED CELL DISTRIBUTION WIDTH 16.7 % (9.4-14.8)
[2018-05-28 07:24] VITALS: BP 128/68
[2018-05-28] MEDS: morphine SULFATE 15 MG TAB.IR PO SCH ×3 (09:02→20:38)
[2018-05-28] MEDS: SENNA/DOCUSATE TABLET PO SCH (09:03)
[2018-05-28] MEDS: DRONABINOL 5 MG CAPSULE PO SCH ×2 (09:03→20:37)
[2018-05-28] MEDS: TAMSULOSIN 0.4 MG CAP.ER.24H PO SCH (09:04)
[2018-05-28] MEDS: ALLOPURINOL 100 MG TABLET PO SCH (09:08)
[2018-05-28 14:29] VITALS: BP 103/63
[2018-05-28] MEDS ORDERED: POTASSIUM CHLORIDE 20 MEQ TAB.ER.PRT PO ONE (17:00)
[2018-05-28] MEDS: CEFTRIAXONE PMX 1GM/50ML 50 ML IV SCH (17:00)
[2018-05-28] MEDS: AZITHROMYCIN 500 MG in SODIUM CHLORIDE 0.9% 250 ML IV SCH (18:27)
[2018-05-28 19:15] VITALS: BP 114/77
[2018-05-29 01:36] VITALS: BP 102/67
[2018-05-29 04:47] LABS: BASOPHILS # (AUTO) 0.03 x10^3/uL (0-0.1); BASOPHILS % (AUTO) 1 % (0-1); EOSINOPHILS # (AUTO) 0.13 x10^3/uL (0-0.4); EOSINOPHILS % (AUTO) 4 % (1-7); LYMPHOCYTES # (AUTO) 0.42 x10^3/uL (1-3.4); LYMPHOCYTES % (AUTO) 12 % (22-44); MD NO; MEAN CORPUSCULAR HEMOGLOBIN 27.6 pg (27.5-34.5); MEAN CORPUSCULAR HGB CONC 33.6 g/dL (33.2-36.2); MEAN CORPUSCULAR VOLUME 82.2 fL (81-97); MEAN PLATELET VOLUME 9.2 fL (7.4-10.4); MONOCYTES # (AUTO) 0.62 x10^3/uL (0.2-0.8); MONOCYTES % (AUTO) 18 % (2-9); NEUTROPHILS # (AUTO) 2.27 x10^3/uL (1.8-6.8); NEUTROPHILS % (AUTO) 66 % (42-75); PLATELET COUNT 189 x10^3/uL (130-400); RED BLOOD COUNT 4.49 x10^6/uL (4.38-5.82); RED CELL DISTRIBUTION WIDTH 16.1 % (9.4-14.8)
[2018-05-29 04:54] LABS: ANION GAP 6 mmol/L (5-15); CALCIUM 8.9 mg/dL (8.5-10.1); CHLORIDE 108 mmol/L (98-107); CREATININE 0.67 mg/dL (0.7-1.3)
[2018-05-29] MEDS: OXYcodone IR 5MG TABLET PO SCH ×4 (05:41→23:37)
[2018-05-29 07:38] VITALS: BP 123/75
[2018-05-29] MEDS: SENNA/DOCUSATE TABLET PO SCH (07:51)
[2018-05-29] MEDS: DRONABINOL 5 MG CAPSULE PO SCH ×2 (07:51→21:13)
[2018-05-29] MEDS: ALLOPURINOL 100 MG TABLET PO SCH (07:51)
[2018-05-29] MEDS: morphine SULFATE 15 MG TAB.IR PO SCH ×3 (07:51→21:13)
[2018-05-29] MEDS: TAMSULOSIN 0.4 MG CAP.ER.24H PO SCH (07:51)
[2018-05-29 12:10] VITALS: BP 95/60
[2018-05-29 20:54] VITALS: BP 110/66
[2018-05-29] MEDS: LINEZOLID 600 MG TABLET PO SCH (21:13)
[2018-05-30 03:13] VITALS: BP 112/70
[2018-05-30 06:45] VITALS: BP 126/75
[2018-05-30] MEDS: OXYcodone IR 5MG TABLET PO SCH ×3 (06:50→16:01)
[2018-05-30] MEDS: SENNA/DOCUSATE TABLET PO SCH (08:45)
[2018-05-30] MEDS: DRONABINOL 5 MG CAPSULE PO SCH (08:45)
[2018-05-30] MEDS: ALLOPURINOL 100 MG TABLET PO SCH (08:45)
[2018-05-30] MEDS: TAMSULOSIN 0.4 MG CAP.ER.24H PO SCH (08:45)
[2018-05-30] MEDS: LINEZOLID 600 MG TABLET PO SCH (08:45)
[2018-05-30] MEDS: morphine SULFATE 15 MG TAB.IR PO SCH ×2 (09:30→16:01)
[2018-05-30 12:10] VITALS: BP 109/71
[2018-05-30 13:11] LABS: BASOPHILS # (AUTO) 0.03 x10^3/uL (0-0.1); BASOPHILS % (AUTO) 1 % (0-1); EOSINOPHILS # (AUTO) 0.08 x10^3/uL (0-0.4); EOSINOPHILS % (AUTO) 2 % (1-7); LYMPHOCYTES # (AUTO) 0.43 x10^3/uL (1-3.4); LYMPHOCYTES % (AUTO) 9 % (22-44); MD NO; MEAN CORPUSCULAR HEMOGLOBIN 26.7 pg (27.5-34.5); MEAN CORPUSCULAR HGB CONC 32.6 g/dL (33.2-36.2); MEAN CORPUSCULAR VOLUME 81.8 fL (81-97); MEAN PLATELET VOLUME 9.2 fL (7.4-10.4); MONOCYTES # (AUTO) 0.76 x10^3/uL (0.2-0.8); MONOCYTES % (AUTO) 15 % (2-9); NEUTROPHILS # (AUTO) 3.63 x10^3/uL (1.8-6.8); NEUTROPHILS % (AUTO) 74 % (42-75); PLATELET COUNT 217 x10^3/uL (130-400); RED CELL DISTRIBUTION WIDTH 16.2 % (9.4-14.8)
[2018-05-30] MEDS ORDERED: SENN-177 PO (15:29)
[2018-05-30] MEDS ORDERED: LIDO700A20 TD (15:29)
[2018-05-30] MEDS ORDERED: POLY17PO5 PO (15:29)
[2018-05-30] MEDS ORDERED: DRON5CAP15 PO (15:29)
[2018-05-30] MEDS ORDERED: LINE600T33 PO (15:29)
== END 2018-05-30 16:27 | DRG 177 ==
LOC: ED 17:02 → EDIP 17:03 → ED 17:12 → 3NW 18:17
PROVIDERS: ADMIT Internal Medicine; ATTEND Internal Medicine
DX: J15.20 Pneumonia due to staphylococcus, unspecified (principal); J96.01 Acute respiratory failure with hypoxia; J44.0 Chronic obstructive pulmonary disease with (acute) lower respiratory infection; C85.90 Non-Hodgkin lymphoma, unspecified, unspecified site; G89.4 Chronic pain syndrome; I10 Essential (primary) hypertension; K59.00 Constipation, unspecified; M10.9 Gout, unspecified; N40.0 Benign prostatic hyperplasia without lower urinary tract symptoms; Y95 Nosocomial condition; Z82.49 Family history of ischemic heart disease and other diseases of the circulatory system; Z82.5 Family history of asthma and other chronic lower respiratory diseases; Z83.3 Family history of diabetes mellitus; Z85.6 Personal history of leukemia; Z87.891 Personal history of nicotine dependence; Z89.411 Acquired absence of right great toe; Z89.429 Acquired absence of other toe(s), unspecified side; Z92.21 Personal history of antineoplastic chemotherapy; E11.9 Type 2 diabetes mellitus without complications
CPT/HCPCS: 36415; 71045; 71260; 80048; 80053; 81001; 83605; 83690; 84439; 84443; 85025; 87040; 87070; 87077; 87081; 87086; 87186; 87205; 94640; 96365; 96375; 99285; G0378; J0456; J0696; J2405; J7613; Q0167; Q9967; J7050